=== PATIENT | female | born 1960 | race African-American/Black ===

== ENCOUNTER 2018-01-14 17:21 | Emergency (ER) | payer MEDICARE, MEDICAID ==
[~2018-01-14] VITALS: Ht 165.1 cm; Wt 75.0 kg
[~2018-01-14 17:21] MED LIST: ASPI-1159 PO; LASIX PO; LORA1TAB PO; Metoprolol PO
[2018-01-14 17:33] VITALS: BP 164/59
[2018-01-14] MEDS ORDERED: MORPHINE SULFATE 4 MG/ML CPJ (NOT FOR IM USE) IV STA (18:16)
[2018-01-14] MEDS ORDERED: SODIUM CHLORIDE 0.9% 1,000 ML IV ONE (18:16)
[2018-01-14] MEDS ORDERED: ONDANSETRON HCL 4MG/2ML VIAL IV STA (18:16)
[2018-01-16] MEDS ORDERED: ATOR10TA MT (14:54)
[2018-01-16] MEDS ORDERED: LOSA50TA20 MT (14:54)
[2018-01-16] MEDS ORDERED: TYLENOL PO (14:54)
[2018-01-18] MEDS ORDERED: WARF2.5T47 PO (15:02)
== END 2018-01-14 18:38 | disposition left against medical advice (07) ==
LOC: ER 18:35
DX: R10.31 Right lower quadrant pain (principal); I11.9 Hypertensive heart disease without heart failure; E78.00 Pure hypercholesterolemia, unspecified; Z86.73 Personal history of transient ischemic attack (TIA), and cerebral infarction without residual deficits; Z95.2 Presence of prosthetic heart valve; Z95.0 Presence of cardiac pacemaker
CPT/HCPCS: 99281; J7030

== ENCOUNTER 2019-01-04 12:15 | Emergency (ER) | payer MEDICARE, MEDICAID ==
[~2019-01-04] VITALS: Ht 162.6 cm; Wt 84.0 kg
[~2019-01-04 12:15] MED LIST changes: -ASPI-1159 PO; +ASPI-1393 PO; +ATOR10TA MT; +LOSA50TA41 MT; +TYLENOL PO; +WARF2.5T47 PO
[2019-01-04] MEDS ORDERED: CEFTRIAXONE 1 G PREMIX 50 ML IV ONE (13:00)
[2019-01-04] MEDS ORDERED: HYDROCODONE/ACETAMINOPHEN 5/325MG TABLET PO ONE (13:00)
[2019-01-04] MEDS ORDERED: VANCOMYCIN 1 G PREMIX 200 ML IV SCH (13:00)
[2019-01-04] MEDS ORDERED: IBUPROFEN 400MG TABLET PO ONE (13:00)
[2019-01-04 13:27] LABS: BASOPHILS % 0.9 % (0.0-2.0); EOSINOPHILS % 0.7 % (0.0-5.0); HEMATOCRIT. 36.3 % (36.0-48.0); HEMOGLOBIN. 11.7 g/dL (12.0-16.0); LYMPHOCYTES % 28.3 % (20.0-50.0); MEAN CORPUSCULAR HEMOGLOBIN 27.9 pg (28.0-32.0); MEAN CORPUSCULAR VOLUME 86.9 fL (81.0-99.0); MEAN PLATELET VOLUME 8.2 fl (7.4-10.4); MONOCYTES % 8.8 % (2.0-8.0); NEUTROPHILS % 61.3 % (40.0-76.0); PLATELET 199 x1000/uL (130-400); RED BLOOD CELL COUNT 4.18 mill/uL (4.2-5.4); RED CELL DISTRIBUTION WIDTH 14.2 % (11.6-14.6)
[2019-01-04 13:30] LABS: CHLORIDE 108 mEq/L (98-107)
[2019-01-04 13:35] LABS: INR 1.8
[2019-01-04 15:48] VITALS: BP 130/60
== END 2019-01-04 16:27 | disposition home or self-care (01) ==
LOC: ER 12:15
DX: L03.116 Cellulitis of left lower limb (principal); I11.9 Hypertensive heart disease without heart failure; E78.00 Pure hypercholesterolemia, unspecified; Z86.73 Personal history of transient ischemic attack (TIA), and cerebral infarction without residual deficits; Z87.891 Personal history of nicotine dependence; Z98.890 Other specified postprocedural states; Z95.0 Presence of cardiac pacemaker; Z79.899 Other long term (current) drug therapy
CPT/HCPCS: 36415; 80053; 85025; 85610; 85730; 87040; 93005; 93970; 96365; 96366; 96368; 99284; J0696; J3370

== ENCOUNTER 2019-06-27 13:46 | Emergency (ER) | payer MEDICAID, MEDICARE ==
[~2019-06-27] VITALS: Ht 162.6 cm; Wt 86.0 kg
[2019-06-27 21:35] LABS: CHLORIDE 108 mEq/L (98-107)
[2019-06-27 21:39] LABS: BASOPHILS % 0.5 % (0.0-2.0); EOSINOPHILS % 0.7 % (0.0-5.0); HEMATOCRIT. 35.2 % (36.0-48.0); HEMOGLOBIN. 11.2 g/dL (12.0-16.0); LYMPHOCYTES % 24.7 % (20.0-50.0); MEAN CORPUSCULAR HEMOGLOBIN 26.6 pg (28.0-32.0); MEAN CORPUSCULAR VOLUME 83.3 fL (81.0-99.0); MONOCYTES % 8.3 % (2.0-8.0); NEUTROPHILS % 65.8 % (40.0-76.0); PLATELET 312 x1000/uL (130-400); RED BLOOD CELL COUNT 4.22 mill/uL (4.2-5.4); RED CELL DISTRIBUTION WIDTH 16.9 % (11.6-14.6)
[2019-06-28 00:49] VITALS: BP 132/79
== END 2019-06-28 00:50 | disposition home or self-care (01) ==
LOC: ER 13:46
DX: R06.02 Shortness of breath (principal); R51 Headache; I11.0 Hypertensive heart disease with heart failure; I50.9 Heart failure, unspecified; E78.00 Pure hypercholesterolemia, unspecified; Z86.73 Personal history of transient ischemic attack (TIA), and cerebral infarction without residual deficits; Z95.0 Presence of cardiac pacemaker; Z98.890 Other specified postprocedural states; Z79.82 Long term (current) use of aspirin; Z79.899 Other long term (current) drug therapy
CPT/HCPCS: 36415; 71045; 83880; 84484; 93005; 99284

== ENCOUNTER → 2020-09-26 | Outpatient (CLI) | payer MEDICARE, MEDICAID ==
[~2020-09-26] MED LIST changes: -ASPI-1393 PO; +ASPI-1497 PO
== END | disposition home or self-care (01) ==
LOC: LAB 09:18
PROVIDERS: ATTEND Internal Medicine Cardiovascular Disease
DX: Z20.822 Contact with and (suspected) exposure to COVID-19 (principal)
CPT/HCPCS: 87426

== ENCOUNTER → 2020-09-27 | Outpatient (CLI) | payer MEDICARE, MEDICAID | END | disposition home or self-care (01) | LOC: US 10:43 | PROVIDERS: ATTEND Internal Medicine Cardiovascular Disease | DX: R10.819 Abdominal tenderness, unspecified site (principal); R10.9 Unspecified abdominal pain | CPT/HCPCS: 76770 ==

== ENCOUNTER 2023-12-29 20:14 | Inpatient (IN) | payer MEDICARE, MEDICAID ==
[~2023-12-29] VITALS: Ht 167.6 cm; Wt 81.6 kg
[~2023-12-29 20:14] MED LIST changes: +AMI2 PO; -ASPI-1497 PO; -ATOR10TA MT; +ATOR10TA69 PO; +FERR-63 PO; +FOLI-43 PO; +FURO40TA5 PO; -LASIX PO; -LORA1TAB PO; +LOSA25TA26 PO; -LOSA50TA41 MT; +METO5TAB7 PO; -Metoprolol PO; +OXYB-52 PO; +PANT40TA51 PO; -TYLENOL PO; +WARF-67 PO; -WARF2.5T47 PO
[2023-12-29 20:53] LABS: DIFFERENTIAL COMMENT 0; EOSINOPHILS % 1.4 % (0.0-5.0); HEMATOCRIT. 27.4 % (36.0-48.0); HEMOGLOBIN. 8.4 g/dL (12.0-16.0); LYMPHOCYTES % 21.7 % (20.0-50.0); MEAN CORPUSCULAR HEMOGLOBIN 24.1 pg (28.0-32.0); MEAN CORPUSCULAR HGB CONC 30.5 g/dL (31.0-37.0); MONOCYTES % 9.2 % (2.0-8.0); NEUTROPHILS % 66.7 % (40.0-76.0); PLATELET 260 x1000/uL (130-400); RED BLOOD CELL COUNT 3.46 mill/uL (4.2-5.4); RED CELL DISTRIBUTION WIDTH 18.1 % (11.6-14.6); WHITE BLOOD COUNT 5.2 x1000/uL (4.5-11.0)
[2023-12-29 20:59] LABS: CHLORIDE 109 mEq/L (98-107); SODIUM 143 mEq/L (136-145)
[2023-12-29 21:00] LABS: CALCIUM 9.1 mg/dL (8.7-10.4); CARBON DIOXIDE 27 mEq/L (21-32)
[2023-12-29 21:05] LABS: CREATININE 1.6 mg/dL (0.6-1.0); GLUCOSE 107 mg/dL (70-105); UREA NITROGEN BLOOD 24 mg/dL (9-23)
[2023-12-29 21:06] LABS: TROPONIN I HIGH SENSITIVITY 18 ng/L (3.0-34)
[2023-12-29] MEDS ORDERED: AZITHROMYCIN 500MG/250ML 250 ML IV SCH (22:15)
[2023-12-29] MEDS: CEFTRIAXONE 1GM/50ML 50 ML IV ONE (22:54)
[2023-12-29] MEDS: FUROSEMIDE 40MG/4ML VIAL IVP ONE (22:55)
[2023-12-29] MEDS: ACETAMINOPHEN 325MG TABLET PO STA (22:55)
[2023-12-29] MEDS ORDERED: GUAIFENESIN 200MG/10ML SUGAR FREE UDC PO PRN (23:30)
[2023-12-29] MEDS ORDERED: MAGNESIUM/ALUMINUM HYDROXIDE/SIMETHICONE 30ML UDC PO PRN (23:30)
[2023-12-29] MEDS ORDERED: CLONIDINE 0.1MG TABLET PO PRN (23:30)
[2023-12-29] MEDS ORDERED: ONDANSETRON HCL 4MG/2ML INJ IV PRN (23:30)
[2023-12-29] MEDS: ONDANSETRON HCL 4MG/2ML INJ IV NR (23:32)
[2023-12-29 23:39] LABS: INR 3.1; PARTIAL THROMBOPLASTIN TIME 34.7 sec (23.4-31.0); PROTHROMBIN TIME 31.8 sec (9.6-11.0)
[2023-12-29 23:42] LABS: ALANINE AMINOTRANSFERASE 23 IU/L (10-49); ALBUMIN 3.7 g/dL (3.2-4.8); ASPARTATE AMINOTRANSFERASE 34 IU/L (<34); BILIRUBIN DIRECT 0.2 mg/dL (<=3.0); BILIRUBIN TOTAL 0.5 mg/dL (0.1-1.0); PROTEIN TOTAL 6.6 g/dL (6.0-8.3)
[2023-12-29] MEDS: AZITHROMYCIN 500MG/250ML 250 ML IV NR (23:43)
[2023-12-30] MEDS: ALPRAZOLAM 0.25 MG TABLET PO NR (00:56)
[2023-12-30] MEDS ORDERED: CEFTRIAXONE 1GM/50ML 50 ML IV SCH (02:00)
[2023-12-30 02:10] VITALS: BP 98/56; PULSE 69; RESP 19; TEMP 95.4
[2023-12-30] MEDS: SODIUM CHLORIDE 0.45% 500 ML IV ONE (03:11)
[2023-12-30 04:00] VITALS: BP 125/63; PULSE 68; RESP 20; TEMP 96.2
[2023-12-30 06:49] LABS: CARBON DIOXIDE 24 mEq/L (21-32); CHLORIDE 109 mEq/L (98-107); POTASSIUM 3.9 mEq/L (3.5-5.1); SODIUM 142 mEq/L (136-145)
[2023-12-30 06:50] LABS: CALCIUM 8.6 mg/dL (8.7-10.4)
[2023-12-30 06:54] LABS: IRON 16 ug/dL (50-170); TROPONIN I HIGH SENSITIVITY 12 ng/L (3.0-34)
[2023-12-30 06:55] LABS: CREATININE 1.8 mg/dL (0.6-1.0); DIFFERENTIAL COMMENT 0; EOSINOPHILS % 0.4 % (0.0-5.0); GLUCOSE 94 mg/dL (70-105); HEMATOCRIT. 25.7 % (36.0-48.0); LYMPHOCYTES % 17.9 % (20.0-50.0); MEAN CORPUSCULAR HEMOGLOBIN 24.4 pg (28.0-32.0); MEAN CORPUSCULAR HGB CONC 31.2 g/dL (31.0-37.0); MEAN CORPUSCULAR VOLUME 78.2 fL (81.0-99.0); MEAN PLATELET VOLUME 7.5 fl (7.4-10.4); NEUTROPHILS % 69.7 % (40.0-76.0); PLATELET 236 x1000/uL (130-400); RED BLOOD CELL COUNT 3.29 mill/uL (4.2-5.4); TRIGLYCERIDE 56 mg/dL (0-150); UREA NITROGEN BLOOD 28 mg/dL (9-23); WHITE BLOOD COUNT 5.2 x1000/uL (4.5-11.0)
[2023-12-30 06:56] LABS: CHOLESTEROL 133 mg/dL (<200); LDL CHOLESTEROL 51 mg/dL (5-100)
[2023-12-30 06:57] LABS: HDL CHOLESTEROL 66 mg/dL (>65); PHOSPHORUS 4.1 mg/dL (2.5-4.9); T4 FREE 1.41 ng/dL (0.89-1.76); THYROID STIMULATING HORMONE 1.71 uIU/mL (0.55-4.78); TOTAL IRON BINDING CAPACITY 318 ug/dl (250-425)
[2023-12-30 08:00] VITALS: BP 123/69; PULSE 71; RESP 18; TEMP 97.1
[2023-12-30] MEDS ORDERED: DOXYCYCLINE 100MG/100ML 100 ML IV SCH ×2 (08:00→08:30)
[2023-12-30] MEDS: FOLIC ACID 1MG TABLET PO SCH (08:19)
[2023-12-30] MEDS: AMIODARONE HCL 200 MG TABLET PO SCH (08:19)
[2023-12-30 08:45] LABS: CLARITY URINE CLEAR (CLEAR); COLOR URINE DARK YELLOW (YELLOW); GLUCOSE URINE NEGATIVE (NEGATIVE); KETONES URINE TRACE (NEGATIVE); LEUKOCYTE ESTERASE URINE NEGATIVE (NEGATIVE); NITRITE URINE NEGATIVE (NEGATIVE); OCCULT BLOOD URINE TRACE (NEGATIVE); PROTEIN URINE 2+ (NEGATIVE); SPECIFIC GRAVITY URINE 1.019 (1.005-1.030)
[2023-12-30] MEDS ORDERED: FUROSEMIDE 40MG/4ML VIAL IV SCH (09:00)
[2023-12-30] MEDS ORDERED: LOSARTAN 25 MG TABLET PO SCH (09:00)
[2023-12-30] MEDS: DOXYCYCLINE 100MG/100ML 100 ML IV SCH (09:02)
[2023-12-30 09:12] LABS: SQUAMOUS EPITHELIAL CELL URINE 1+ /lpf (RARE/1+)
[2023-12-30 09:14] LABS: HYALINE CASTS URINE 0-5 /lpf
[2023-12-30 09:19] LABS: CREATININE URINE RANDOM 186.5 mg/dL
[2023-12-30 09:20] LABS: *AMPHETAMINES SCREEN URINE NEGATIVE (NEGATIVE); *BARBITURATES SCREEN URINE NEGATIVE (NEGATIVE); *BENZODIAZEPINES SCREEN URINE PRESUMPTIVE POSITIVE (NEGATIVE); *COCAINE SCREEN URINE NEGATIVE (NEGATIVE); CANNABINOID URINE SCREEN NEGATIVE (NEGATIVE); ECSTASY MDMA SCREEN URINE CONF.TEST INDICATED (NEGATIVE); METHADONE URINE SCREEN NEGATIVE (NEGATIVE); OPIATES URINE SCREEN NEGATIVE (NEGATIVE); PHENCYCLIDINE URINE SCREEN NEGATIVE (NEGATIVE)
[2023-12-30 09:21] LABS: RBC URINE 0-2 /hpf (0-2); WBC URINE 0-2 /hpf (0-2)
[2023-12-30 09:26] LABS: BACTERIA URINE 1+
[2023-12-30 12:00] VITALS: BP 114/65; PULSE 82; RESP 18; TEMP 97
[2023-12-30 16:00] VITALS: BP 86/48; PULSE 71; RESP 17; TEMP 98.8
[2023-12-30 20:00] VITALS: BP 113/65; PULSE 71; RESP 21; TEMP 97.7
[2023-12-30] MEDS: ATORVASTATIN CALCIUM 10MG TABLET PO SCH (20:51)
[2023-12-30] MEDS: METOPROLOL TARTRATE 25MG TABLET PO SCH (20:52)
[2023-12-30] MEDS ORDERED: AZITHROMYCIN 500MG/250ML 250 ML IV SCH (22:00)
[2023-12-31] VITALS: BP 125/72; PULSE 72; RESP 22; TEMP 98.1
[2023-12-31 04:00] VITALS: BP 110/78; PULSE 72; RESP 20; TEMP 97.6
[2023-12-31] MEDS: HYDROCODONE/ACETAMINOPHEN 5/325MG TABLET PO NR (04:33)
[2023-12-31 06:35] LABS: HEMATOCRIT 24.6 % (36.0-48.0); HEMOGLOBIN 7.5 g/dL (12.0-16.0); MEAN CORPUSCULAR HGB CONC 30.3 g/dL (31.0-37.0); MEAN CORPUSCULAR VOLUME 79.2 fL (81.0-99.0); PLATELET 226 x1000/uL (130-400); RED BLOOD CELL COUNT 3.11 mill/uL (4.2-5.4); RED CELL DISTRIBUTION WIDTH 18.1 % (11.6-14.6); WHITE BLOOD COUNT 4.6 x1000/uL (4.5-11.0)
[2023-12-31 06:41] LABS: CARBON DIOXIDE 24 mEq/L (21-32); CHLORIDE 109 mEq/L (98-107); SODIUM 141 mEq/L (136-145)
[2023-12-31 06:43] LABS: CALCIUM 8.6 mg/dL (8.7-10.4); INR 2.8
[2023-12-31 06:46] LABS: CREATININE 1.5 mg/dL (0.6-1.0)
[2023-12-31 06:47] LABS: GLUCOSE 102 mg/dL (70-105)
[2023-12-31 06:48] LABS: UREA NITROGEN BLOOD 33 mg/dL (9-23)
[2023-12-31 08:10] VITALS: BP 136/68; PULSE 72; RESP 18; TEMP 97.4
[2023-12-31] MEDS: BUMETANIDE 1MG/4ML VIAL IV SCH (09:10)
[2023-12-31] MEDS: DOCUSATE SODIUM 100MG CAPSULE PO PRN (09:31)
[2023-12-31 12:05] VITALS: BP 112/58; PULSE 74; RESP 20; TEMP 98.2
[2023-12-31] MEDS ORDERED: FOLIC ACID 1MG TABLET PO SCH (12:30)
[2023-12-31] MEDS: FERROUS SULFATE 325MG TABLET PO SCH (14:48)
[2023-12-31] MEDS: CITALOPRAM HYDROBROMIDE 10MG TABLET PO SCH (14:48)
[2023-12-31 16:04] VITALS: BP 110/62; PULSE 68; RESP 20; TEMP 97.8
[2023-12-31] MEDS: ONDANSETRON HCL 4MG/2ML INJ IV PRN (16:20)
[2023-12-31] MEDS ORDERED: FERR325T6 MT (16:27)
[2023-12-31] MEDS ORDERED: ALPR-393 MT (16:27)
[2023-12-31] MEDS ORDERED: BUME1TAB8 MT (16:27)
[2023-12-31] MEDS ORDERED: TRAZ-252 MT (16:43)
[2023-12-31] MEDS ORDERED: ESTR42.53 VG (16:43)
[2023-12-31] MEDS ORDERED: ESCI-7 PO (16:47)
[2023-12-31] MEDS ORDERED: CEPH250C2 PO (16:47)
[2023-12-31] MEDS ORDERED: B-COMPLEX PO (16:47)
[2023-12-31] MEDS ORDERED: METO-411 PO (16:47)
[2023-12-31] MEDS: WARFARIN SODIUM 2MG TABLET PO SCH (17:42)
[2023-12-31] MEDS: MONTELUKAST SODIUM 10MG TABLET PO SCH (17:42)
[2023-12-31 20:00] VITALS: BP 114/50; PULSE 68; RESP 20; TEMP 96.7
[2024-01-01] VITALS (8 sets, daily range): BP systolic 116–139; BP diastolic 57–69; PULSE 69–78; RESP 17–22; TEMP 96.1–97.9; O2SAT 97–98
[2024-01-01] MEDS: ALPRAZOLAM 0.25 MG TABLET PO PRN (00:31)
[2024-01-01 06:33] LABS: INR 2.6; PROTHROMBIN TIME 26.7 sec (9.6-11.0)
[2024-01-01] MEDS: IPRATROPIUM/ALBUTEROL 0.5-3(2.5)MG/3ML NEB HHN SCH (08:20)
[2024-01-01] MEDS: FERROUS SULFATE 325MG TABLET PO SCH (08:53)
[2024-01-01] MEDS: IPRATROPIUM/ALBUTEROL 0.5-3(2.5)MG/3ML NEB HHN PRN (13:09)
[2024-01-01] MEDS: ACETAMINOPHEN 325MG TABLET PO PRN (13:33)
[2024-01-02] VITALS (10 sets, daily range): BP systolic 116–147; BP diastolic 52–64; PULSE 70–79; RESP 15–22; TEMP 96.9–97.8; O2SAT 97–98
[2024-01-02 08:10] LABS: INR 2.5; PROTHROMBIN TIME 26.5 sec (9.6-11.0)
[2024-01-02 08:12] LABS: BASOPHILS % 0.9 % (0.0-2.0); EOSINOPHILS % 1.2 % (0.0-5.0); HEMATOCRIT. 25.3 % (36.0-48.0); HEMOGLOBIN. 7.5 g/dL (12.0-16.0); LYMPHOCYTES % 23.7 % (20.0-50.0); MEAN CORPUSCULAR HEMOGLOBIN 23.7 pg (28.0-32.0); MEAN CORPUSCULAR HGB CONC 29.6 g/dL (31.0-37.0); MEAN PLATELET VOLUME 7.7 fl (7.4-10.4); MONOCYTES % 13.5 % (2.0-8.0); NEUTROPHILS % 60.7 % (40.0-76.0); PLATELET 211 x1000/uL (130-400); RED BLOOD CELL COUNT 3.16 mill/uL (4.2-5.4); RED CELL DISTRIBUTION WIDTH 18.1 % (11.6-14.6); WHITE BLOOD COUNT 3.8 x1000/uL (4.5-11.0)
[2024-01-02 08:19] LABS: CARBON DIOXIDE 23 mEq/L (21-32); CHLORIDE 109 mEq/L (98-107); SODIUM 141 mEq/L (136-145)
[2024-01-02 08:20] LABS: CALCIUM 8.7 mg/dL (8.7-10.4); DIFFERENTIAL COMMENT 1
[2024-01-02 08:25] LABS: CREATININE 1.1 mg/dL (0.6-1.0); GLUCOSE 85 mg/dL (70-105); UREA NITROGEN BLOOD 25 mg/dL (9-23)
[2024-01-02] MEDS ORDERED: CITA10TA16 PO (14:28)
[2024-01-02] MEDS ORDERED: METO25TA6 PO (14:28)
[2024-01-02] MEDS ORDERED: MONT-46 PO (14:28)
[2024-01-02] MEDS ORDERED: FERR325T6 PO (14:28)
[2024-01-03] VITALS: BP 126/62; PULSE 85; RESP 18; TEMP 97
[2024-01-03 01:30] VITALS: PULSE 70; RESP 16
[2024-01-03 04:00] VITALS: BP 134/56; PULSE 84; RESP 15; TEMP 97.9
[2024-01-03 05:09] LABS: CHLAMYDIA TRACHOMATIS NAA Negative (Negative); NEISSERIA GONORRHOEAE NAA Negative (Negative)
[2024-01-03 06:13] LABS: INR 2.7; PROTHROMBIN TIME 28.3 sec (9.6-11.0)
[2024-01-03 08:00] VITALS: BP 157/67; PULSE 70; RESP 18; TEMP 97.9
[2024-01-03 12:00] VITALS: BP 151/84; PULSE 70; RESP 18; TEMP 97.8
[2024-01-03 13:12] VITALS: BP 120/54; PULSE 70; TEMP 97.8; O2SAT 98
[2024-01-03] MEDS ORDERED: CITA10TA16 PO (14:05)
[2024-01-03] MEDS ORDERED: METO25TA6 PO (14:05)
[2024-01-03] MEDS ORDERED: FERR325T6 PO (14:05)
[2024-01-03] MEDS ORDERED: MONT-46 PO (14:05)
== END 2024-01-03 14:22 | disposition home health service (06) | DRG 291 ==
LOC: ER 20:14 → 8WST 23:21
PROVIDERS: ADMIT Internal Medicine; ATTEND Internal Medicine
DX: I11.0 Hypertensive heart disease with heart failure (principal); I50.33 Acute on chronic diastolic (congestive) heart failure; J96.00 Acute respiratory failure, unspecified whether with hypoxia or hypercapnia; J18.9 Pneumonia, unspecified organism; N17.9 Acute kidney failure, unspecified; I47.20 Ventricular tachycardia, unspecified; I69.354 Hemiplegia and hemiparesis following cerebral infarction affecting left non-dominant side; E78.5 Hyperlipidemia, unspecified; D64.0 Hereditary sideroblastic anemia; D50.9 Iron deficiency anemia, unspecified; F32.9 Major depressive disorder, single episode, unspecified; F41.0 Panic disorder [episodic paroxysmal anxiety]; I07.1 Rheumatic tricuspid insufficiency; Z20.822 Contact with and (suspected) exposure to COVID-19; I95.9 Hypotension, unspecified; I48.0 Paroxysmal atrial fibrillation; Z79.01 Long term (current) use of anticoagulants; Z87.891 Personal history of nicotine dependence; Z95.0 Presence of cardiac pacemaker; Z95.3 Presence of xenogenic heart valve
CPT/HCPCS: 36415; 71045; 80048; 80061; 80076; 80305; 81003; 82270; 82570; 82728; 83540; 83550; 83735; 83880; 84100; 84156; 84439; 84443; 84484; 85025; 85027; 87426; 87491; 87591; 87804; 93005; 93306; 94640; 97162; 97165; 99285; C1893; J0456; J0696; J1940; J2405; J3490

== ENCOUNTER → 2024-01-29 | Outpatient (CLI) | payer MEDICARE, MEDICAID ==
[~2024-01-29] MED LIST changes: +ALPR-393 MT; +B-COMPLEX PO; +BUME1TAB8 MT; +CITA10TA16 PO; +ESTR42.53 VG; -FERR-63 PO; +FERR325T6 PO; -FURO40TA5 PO; +METO25TA6 PO; -METO5TAB7 PO; +MONT-46 PO
== END | disposition home or self-care (01) ==
LOC: CT 13:19
PROVIDERS: ATTEND Internal Medicine Cardiovascular Disease
DX: J90 Pleural effusion, not elsewhere classified (principal); I51.7 Cardiomegaly; R06.09 Other forms of dyspnea
CPT/HCPCS: 71250

== ENCOUNTER 2024-02-02 17:08 | Inpatient (IN) | payer MEDICARE, MEDICAID ==
[~2024-02-02] VITALS: Ht 162.6 cm; Wt 77.1 kg
[2024-02-02 18:22] LABS: HEMATOCRIT. 24.2 % (36.0-48.0); MEAN CORPUSCULAR HEMOGLOBIN 20.8 pg (28.0-32.0); MEAN CORPUSCULAR HGB CONC 28.3 g/dL (31.0-37.0); MEAN CORPUSCULAR VOLUME 73.7 fL (81.0-99.0); MEAN PLATELET VOLUME 7.2 fl (7.4-10.4); PLATELET 203 x1000/uL (130-400); RED BLOOD CELL COUNT 3.28 mill/uL (4.2-5.4); WHITE BLOOD COUNT 3.5 x1000/uL (4.5-11.0)
[2024-02-02 18:27] LABS: CHLORIDE 109 mEq/L (98-107); POTASSIUM 3.6 mEq/L (3.5-5.1); SODIUM 142 mEq/L (136-145)
[2024-02-02 18:28] LABS: CALCIUM 8.9 mg/dL (8.7-10.4); CARBON DIOXIDE 26 mEq/L (21-32)
[2024-02-02 18:29] LABS: DIFFERENTIAL COMMENT 1; HEMOGLOBIN. 6.8 g/dL (12.0-16.0)
[2024-02-02 18:33] LABS: CREATININE 1.2 mg/dL (0.6-1.0); GLUCOSE 95 mg/dL (70-105); UREA NITROGEN BLOOD 17 mg/dL (9-23)
[2024-02-02 18:34] LABS: TROPONIN I HIGH SENSITIVITY 16 ng/L (3.0-34)
[2024-02-02 18:43] LABS: ANISOCYTOSIS 1+; HYPOCHROMASIA 2+; MICROCYTOSIS 2+; PLATELET ESTIMATE NORMAL
[2024-02-02] MEDS ORDERED: CLONIDINE 0.1MG TABLET PO PRN (21:00)
[2024-02-02] MEDS ORDERED: DIPHENHYDRAMINE 50MG/ML VIAL IV PRN (21:00)
[2024-02-02] MEDS ORDERED: MAGNESIUM/ALUMINUM HYDROXIDE/SIMETHICONE 30ML UDC PO PRN (21:00)
[2024-02-02] MEDS ORDERED: ONDANSETRON HCL 4MG/2ML INJ IV PRN (21:00)
[2024-02-02] MEDS ORDERED: ACETAMINOPHEN 325MG TABLET PO PRN ×2 (21:00)
[2024-02-02] MEDS: OMEPRAZOLE 20MG CAPSULE EXTENDED RELEASE PO SCH (22:08)
[2024-02-02] MEDS: ATORVASTATIN CALCIUM 10MG TABLET PO SCH (22:08)
[2024-02-02] MEDS: DOCUSATE SODIUM 100MG CAPSULE PO SCH (22:08)
[2024-02-02] MEDS: SODIUM CHLORIDE 0.9% 3ML FLUSH IVF SCH (22:11)
[2024-02-03 00:54] LABS: VITAMIN B12 SERUM > 2000 pg/mL (211-911)
[2024-02-03 02:14] LABS: PROTHROMBIN TIME 11.4 sec (9.6-11.0)
[2024-02-03 08:25] LABS: MEAN CORPUSCULAR HEMOGLOBIN 22.5 pg (28.0-32.0); MEAN CORPUSCULAR HGB CONC 29.7 g/dL (31.0-37.0); MEAN CORPUSCULAR VOLUME 75.5 fL (81.0-99.0); PLATELET 176 x1000/uL (130-400); RED BLOOD CELL COUNT 3.58 mill/uL (4.2-5.4); RED CELL DISTRIBUTION WIDTH 20.4 % (11.6-14.6)
[2024-02-03] MEDS ORDERED: MAGNESIUM HYDROXIDE 400MG/5ML 30ML UDC PO PRN (09:00)
[2024-02-03] MEDS: FOLIC ACID 1MG TABLET PO SCH (09:34)
[2024-02-03] MEDS: LOSARTAN 25 MG TABLET PO SCH (09:43)
[2024-02-03] MEDS: AMIODARONE HCL 200 MG TABLET PO SCH (09:43)
[2024-02-03] MEDS: FERROUS SULFATE 325MG TABLET PO SCH (09:43)
[2024-02-03] MEDS: FUROSEMIDE 40MG/4ML VIAL IVP SCH (09:45)
[2024-02-03] MEDS: HYDROCODONE/ACETAMINOPHEN 10/325MG TABLET PO PRN ×2 (10:24→22:39)
[2024-02-03] MEDS: ENOXAPARIN 80MG/0.8ML SYR SUBCUT SCH (14:00)
[2024-02-03 15:12] VITALS: BP 148/69; PULSE 70; RESP 18; TEMP 98.2
[2024-02-03 15:25] VITALS: BP 148/69; PULSE 70; RESP 18; TEMP 98.2
[2024-02-03] MEDS: DILTIAZEM HCL 30MG TABLET PO SCH (17:32)
[2024-02-03] MEDS: EPOETIN ALFA-EPBX 10,000 UNIT/ML VIAL SUBCUT NR (17:46)
[2024-02-03] MEDS ORDERED: WARFARIN SODIUM 5MG TABLET PO SCH (18:00)
[2024-02-03 20:00] VITALS: BP 119/58; PULSE 71; RESP 20; TEMP 97.7
[2024-02-03] MEDS ORDERED: NALOXONE HCL 0.4MG/ML VIAL IV PRN (22:30)
[2024-02-04] VITALS: BP 127/56; PULSE 72; RESP 19; TEMP 98.5
[2024-02-04] MEDS: ALPRAZOLAM 0.25 MG TABLET PO PRN (01:47)
[2024-02-04 04:00] VITALS: BP 124/50; PULSE 72; RESP 18; TEMP 98
[2024-02-04 06:48] LABS: PROTHROMBIN TIME 11.5 sec (9.6-11.0)
[2024-02-04 08:00] VITALS: BP 140/74; PULSE 70; RESP 20; TEMP 97.9
[2024-02-04 12:04] VITALS: BP 147/59; PULSE 70; RESP 20; TEMP 97.5
[2024-02-04] MEDS ORDERED: LIDOCAINE HCL/PF 1% 10 MG/ML 5ML VIAL ONE (12:05)
[2024-02-04] MEDS ORDERED: DIPHENHYDRAMINE 50MG/ML VIAL ONE (12:05)
[2024-02-04] MEDS ORDERED: VERAPAMIL HCL 2.5 MG/1 ML 2ML VIAL IV ONE (12:05)
[2024-02-04] MEDS ORDERED: IODIXANOL 320MG/ML 100 ML BOTTLE IV ONE (12:06)
[2024-02-04] MEDS ORDERED: HEPARIN 1000 UNITS/ML 10ML ONE (12:06)
[2024-02-04] MEDS ORDERED: FENTANYL CITRATE/PF 50MCG/ML 2ML VIAL ONE (12:37)
[2024-02-04] MEDS ORDERED: MIDAZOLAM HCL 2 MG/2 ML VIAL ONE (12:37)
[2024-02-04] MEDS ORDERED: ACETAMINOPHEN 325MG TABLET PO PRN (14:00)
[2024-02-04] MEDS ORDERED: ATROPINE SULFATE 1MG/10ML SYR IV PRN (14:00)
[2024-02-04 16:00] VITALS: BP 122/59; PULSE 74; RESP 20; TEMP 97.7
[2024-02-04 18:39] LABS: HEMATOCRIT. 32.3 % (36.0-48.0); HEMOGLOBIN. 9.6 g/dL (12.0-16.0); MEAN CORPUSCULAR HEMOGLOBIN 22.6 pg (28.0-32.0); MEAN CORPUSCULAR HGB CONC 29.7 g/dL (31.0-37.0); MEAN CORPUSCULAR VOLUME 76.1 fL (81.0-99.0); MEAN PLATELET VOLUME 7.8 fl (7.4-10.4); PLATELET 189 x1000/uL (130-400); RED BLOOD CELL COUNT 4.24 mill/uL (4.2-5.4); WHITE BLOOD COUNT 4.9 x1000/uL (4.5-11.0)
[2024-02-04 18:41] LABS: DIFFERENTIAL COMMENT 1
[2024-02-04 18:59] LABS: CHLORIDE 108 mEq/L (98-107); POTASSIUM 3.2 mEq/L (3.5-5.1); SODIUM 139 mEq/L (136-145)
[2024-02-04 19:00] LABS: CARBON DIOXIDE 23 mEq/L (21-32)
[2024-02-04 19:01] LABS: CALCIUM 8.9 mg/dL (8.7-10.4)
[2024-02-04 19:02] LABS: ANISOCYTOSIS 1+; HYPOCHROMASIA 1+; MICROCYTOSIS 1+; PLATELET ESTIMATE NORMAL
[2024-02-04 19:05] LABS: GLUCOSE 126 mg/dL (70-105); UREA NITROGEN BLOOD 9 mg/dL (9-23)
[2024-02-04 19:07] LABS: ALANINE AMINOTRANSFERASE 10 IU/L (10-49); ALBUMIN 3.8 g/dL (3.2-4.8); ASPARTATE AMINOTRANSFERASE 27 IU/L (<34)
[2024-02-04 19:08] LABS: BILIRUBIN TOTAL 0.9 mg/dL (0.1-1.0); PROTEIN TOTAL 6.9 g/dL (6.0-8.3)
[2024-02-04 20:00] VITALS: BP 101/75; PULSE 74; RESP 18; TEMP 98.1
[2024-02-05] VITALS (7 sets, daily range): BP systolic 118–138; BP diastolic 46–70; PULSE 78–85; RESP 16–20; TEMP 97.6–98.1; O2SAT 98
[2024-02-05] MEDS: DILTIAZEM HCL 60MG TABLET PO SCH (02:00)
[2024-02-05] MEDS: ZOLPIDEM TARTRATE 5MG TABLET PO PRN (04:18)
[2024-02-05 06:42] LABS: CARBON DIOXIDE 26 mEq/L (21-32); CHLORIDE 108 mEq/L (98-107); SODIUM 141 mEq/L (136-145)
[2024-02-05 06:43] LABS: CALCIUM 8.6 mg/dL (8.7-10.4)
[2024-02-05 06:48] LABS: GLUCOSE 81 mg/dL (70-105); UREA NITROGEN BLOOD 10 mg/dL (9-23)
[2024-02-05 06:49] LABS: ALANINE AMINOTRANSFERASE 8 IU/L (10-49); ALBUMIN 3.6 g/dL (3.2-4.8); ASPARTATE AMINOTRANSFERASE 25 IU/L (<34)
[2024-02-05 06:50] LABS: BILIRUBIN TOTAL 0.9 mg/dL (0.1-1.0); PROTEIN TOTAL 6.3 g/dL (6.0-8.3)
[2024-02-05 06:52] LABS: HEMATOCRIT. 29.7 % (36.0-48.0); HEMOGLOBIN. 8.9 g/dL (12.0-16.0); MEAN CORPUSCULAR HEMOGLOBIN 22.5 pg (28.0-32.0); MEAN CORPUSCULAR HGB CONC 29.9 g/dL (31.0-37.0); MEAN CORPUSCULAR VOLUME 75.1 fL (81.0-99.0); MEAN PLATELET VOLUME 7.8 fl (7.4-10.4); PLATELET 178 x1000/uL (130-400); RED BLOOD CELL COUNT 3.95 mill/uL (4.2-5.4); RED CELL DISTRIBUTION WIDTH 19.8 % (11.6-14.6); WHITE BLOOD COUNT 5.1 x1000/uL (4.5-11.0)
[2024-02-05 07:47] LABS: DIFFERENTIAL COMMENT 1
[2024-02-05] MEDS: POTASSIUM CHLORIDE 20MEQ TABLET SR PO SCH (10:46)
[2024-02-05] MEDS: MAGNESIUM 2 G PREMIX 50 ML IV SCH (16:36)
[2024-02-05 17:38] LABS: CHLORIDE 107 mEq/L (98-107); SODIUM 140 mEq/L (136-145)
[2024-02-05 17:39] LABS: CARBON DIOXIDE 26 mEq/L (21-32)
[2024-02-05 23:29] LABS: ANISOCYTOSIS 1+; HYPOCHROMASIA 1+; MICROCYTOSIS 1+; PLATELET ESTIMATE NORMAL
== END 2024-02-05 19:10 | disposition home or self-care (01) | DRG 286 ==
LOC: ER 17:08 → MICUSO 19:42 → EDBEDREQTM 19:52 → EDBEDREQ 19:52 → 7WST 02-03 15:39
PROVIDERS: ADMIT Internal Medicine; ATTEND Internal Medicine
PROC: 4A023N7 Measurement of Cardiac Sampling and Pressure, Left Heart, Percutaneous Approach (ICD-10-PCS; principal; 2024-02-04)
PROC: B211YZZ Fluoroscopy of Multiple Coronary Arteries using Other Contrast (ICD-10-PCS; 2024-02-04)
DX: I11.0 Hypertensive heart disease with heart failure (principal); I50.43 Acute on chronic combined systolic (congestive) and diastolic (congestive) heart failure; I48.20 Chronic atrial fibrillation, unspecified; N17.9 Acute kidney failure, unspecified; I27.20 Pulmonary hypertension, unspecified; I25.10 Atherosclerotic heart disease of native coronary artery without angina pectoris; F32.A Depression, unspecified; F41.1 Generalized anxiety disorder; D50.0 Iron deficiency anemia secondary to blood loss (chronic); E83.42 Hypomagnesemia; E87.6 Hypokalemia; I07.1 Rheumatic tricuspid insufficiency; Z95.0 Presence of cardiac pacemaker; Z95.2 Presence of prosthetic heart valve; Z79.01 Long term (current) use of anticoagulants; Z86.73 Personal history of transient ischemic attack (TIA), and cerebral infarction without residual deficits; Z87.891 Personal history of nicotine dependence; Z91.199 Patient's noncompliance with other medical treatment and regimen due to unspecified reason
CPT/HCPCS: 36415; 71045; 80048; 80051; 80053; 82607; 83735; 83880; 84484; 85025; 85027; 85044; 86850; 86900; 86920; 87426; 93005; 93306; 93458; 99291; C1887; C1893; J0885; J1200; J1644; J1650; J1940; J2250; J3010; J3475; J3490; P9016; Q9967

== ENCOUNTER 2024-02-11 12:48 | Inpatient (IN) | payer MEDICARE, MEDICAID ==
[~2024-02-11] VITALS: Ht 165.1 cm; Wt 77.1 kg
[2024-02-11 13:18] LABS: HEMATOCRIT. 32.1 % (36.0-48.0); HEMOGLOBIN. 9.6 g/dL (12.0-16.0); MEAN CORPUSCULAR HEMOGLOBIN 22.6 pg (28.0-32.0); MEAN CORPUSCULAR HGB CONC 29.8 g/dL (31.0-37.0); MEAN PLATELET VOLUME 7.8 fl (7.4-10.4); PLATELET 178 x1000/uL (130-400); RED BLOOD CELL COUNT 4.23 mill/uL (4.2-5.4); RED CELL DISTRIBUTION WIDTH 21.9 % (11.6-14.6); WHITE BLOOD COUNT 3.1 x1000/uL (4.5-11.0)
[2024-02-11 13:20] LABS: CHLORIDE 109 mEq/L (98-107); POTASSIUM 4.6 mEq/L (3.5-5.1); SODIUM 139 mEq/L (136-145)
[2024-02-11 13:21] LABS: CALCIUM 9.2 mg/dL (8.7-10.4); CARBON DIOXIDE 24 mEq/L (21-32)
[2024-02-11 13:26] LABS: GLUCOSE 93 mg/dL (70-105); UREA NITROGEN BLOOD 11 mg/dL (9-23)
[2024-02-11 13:28] LABS: DIFFERENTIAL COMMENT 1
[2024-02-11 13:29] LABS: TROPONIN I HIGH SENSITIVITY 16 ng/L (3.0-34)
[2024-02-11] MEDS: FUROSEMIDE 40MG/4ML VIAL IVP ONE (14:28)
[2024-02-11 15:28] LABS: ANISOCYTOSIS 3+; HYPOCHROMASIA 1+; MICROCYTOSIS 1+; PLATELET ESTIMATE NORMAL
[2024-02-11 15:35] LABS: D-DIMER 1.16 mg/L FEU (<0.50); INR 1.2; PARTIAL THROMBOPLASTIN TIME 28.9 sec (23.4-31.0); PROTHROMBIN TIME 12.8 sec (9.6-11.0)
[2024-02-11 20:00] VITALS: BP 155/71; PULSE 83; RESP 19; TEMP 97.4
[2024-02-11 20:16] VITALS: BP 181/77; RESP 20; TEMP 97.7; O2SAT 95
[2024-02-11] MEDS: HYDRALAZINE 20MG/ML VIAL IV PRN (21:27)
[2024-02-11] MEDS ORDERED: HYDRALAZINE 20MG/ML VIAL IV PRN (22:00)
[2024-02-11] MEDS ORDERED: MAGNESIUM/ALUMINUM HYDROXIDE/SIMETHICONE 30ML UDC PO PRN (22:00)
[2024-02-11] MEDS ORDERED: ONDANSETRON HCL 4MG/2ML INJ IV PRN (22:00)
[2024-02-11] MEDS ORDERED: NALOXONE HCL 0.4MG/ML VIAL IV PRN (22:30)
[2024-02-11] MEDS: WARFARIN SODIUM 3MG TABLET PO NR (23:17)
[2024-02-11] MEDS: DILTIAZEM HCL 60MG TABLET PO SCH (23:17)
[2024-02-11] MEDS: HYDROCODONE/ACETAMINOPHEN 10/325MG TABLET PO PRN (23:18)
[2024-02-11] MEDS ORDERED: WARFARIN SODIUM 5MG TABLET PO NR (23:30)
[2024-02-12] VITALS (7 sets, daily range): BP systolic 112–155; BP diastolic 54–89; PULSE 78–89; RESP 18–19; TEMP 97–97.7
[2024-02-12] MEDS ORDERED: FURO40TA5 PO (00:12)
[2024-02-12] MEDS: ZOLPIDEM TARTRATE 5MG TABLET PO PRN (02:34)
[2024-02-12] MEDS: SODIUM CHLORIDE 0.9% 3ML FLUSH IVF SCH (02:35)
[2024-02-12] MEDS: ALLOPURINOL 300 MG TABLET PO SCH (09:00)
[2024-02-12] MEDS: LOSARTAN 50 MG TABLET PO SCH (10:22)
[2024-02-12] MEDS: FERROUS SULFATE 325MG TABLET PO SCH (10:22)
[2024-02-12] MEDS: AMIODARONE 200MG TABLET PO SCH (10:22)
[2024-02-12] MEDS: DIPHENHYDRAMINE 50MG/ML VIAL IV PRN (12:16)
[2024-02-12] MEDS ORDERED: IPRATROPIUM/ALBUTEROL 0.5-3(2.5)MG/3ML NEB HHN PRN (12:45)
[2024-02-12 13:57] LABS: INR 1.3
[2024-02-12 14:17] LABS: HEPATITIS B SURFACE ANTIGEN NEGATIVE (Negative)
[2024-02-12 14:38] LABS: HEPATITIS C AB NON REACTIVE (Neg) (Negative)
[2024-02-12] MEDS: WARFARIN SODIUM 3MG TABLET PO SCH (17:07)
[2024-02-12] MEDS: IPRATROPIUM/ALBUTEROL 0.5-3(2.5)MG/3ML NEB HHN SCH (18:00)
[2024-02-12] MEDS: ATORVASTATIN CALCIUM 10MG TABLET PO SCH (21:43)
[2024-02-12] MEDS: EPOETIN ALFA-EPBX 10,000 UNIT/ML VIAL SUBCUT NR (21:44)
[2024-02-13] VITALS (8 sets, daily range): BP systolic 111–138; BP diastolic 60–73; PULSE 72–89; RESP 16–20; TEMP 97.4–97.9; O2SAT 90–91
[2024-02-13 07:46] LABS: INR 1.5
[2024-02-13] MEDS: WARFARIN SODIUM 3MG TABLET PO SCH (17:27)
[2024-02-13] MEDS: IOHEXOL-350 100 ML BOTTLE ONE (21:18)
[2024-02-14] VITALS (9 sets, daily range): BP systolic 114–125; BP diastolic 48–62; PULSE 74–93; RESP 14–20; TEMP 97.1–98.1; O2SAT 98–99
[2024-02-14 06:08] LABS: INR 1.7; PROTHROMBIN TIME 18.6 sec (9.6-11.0)
[2024-02-14] MEDS: DOCUSATE SODIUM 100MG CAPSULE PO PRN (20:56)
[2024-02-15] VITALS (7 sets, daily range): BP systolic 112–152; BP diastolic 52–80; PULSE 94–109; RESP 16–20; TEMP 97.1–100; O2SAT 90–93
[2024-02-15 07:09] LABS: INR 1.7; PROTHROMBIN TIME 18.5 sec (9.6-11.0)
[2024-02-15] MEDS: ENOXAPARIN 80MG/0.8ML SYR SUBCUT NR (14:45)
[2024-02-15 18:39] LABS: BASOPHILS % 0.5 % (0.0-2.0); EOSINOPHILS % 1.4 % (0.0-5.0); HEMATOCRIT. 32.9 % (36.0-48.0); HEMOGLOBIN. 9.5 g/dL (12.0-16.0); LYMPHOCYTES % 12.2 % (20.0-50.0); MEAN CORPUSCULAR HEMOGLOBIN 22.2 pg (28.0-32.0); MEAN CORPUSCULAR HGB CONC 28.9 g/dL (31.0-37.0); MEAN CORPUSCULAR VOLUME 76.7 fL (81.0-99.0); MEAN PLATELET VOLUME 7.5 fl (7.4-10.4); NEUTROPHILS % 74.9 % (40.0-76.0); PLATELET 254 x1000/uL (130-400); RED CELL DISTRIBUTION WIDTH 22.2 % (11.6-14.6); WHITE BLOOD COUNT 6.6 x1000/uL (4.5-11.0)
[2024-02-15 18:40] LABS: ADD RBC MORPHOLOGY YES; DIFFERENTIAL COMMENT 1
[2024-02-15] MEDS: ALPRAZOLAM 0.25 MG TABLET PO PRN (18:48)
[2024-02-15 18:49] LABS: CHLORIDE 109 mEq/L (98-107); POTASSIUM 4.2 mEq/L (3.5-5.1); SODIUM 140 mEq/L (136-145)
[2024-02-15 18:50] LABS: CARBON DIOXIDE 24 mEq/L (21-32)
[2024-02-15 18:51] LABS: CALCIUM 9.1 mg/dL (8.7-10.4)
[2024-02-15 18:55] LABS: GLUCOSE 74 mg/dL (70-105)
[2024-02-15 18:56] LABS: UREA NITROGEN BLOOD 19 mg/dL (9-23)
[2024-02-15 18:57] LABS: ALANINE AMINOTRANSFERASE 13 IU/L (10-49); ALBUMIN 4.3 g/dL (3.2-4.8); ASPARTATE AMINOTRANSFERASE 27 IU/L (<34)
[2024-02-15 18:58] LABS: BILIRUBIN TOTAL 0.6 mg/dL (0.1-1.0); PROTEIN TOTAL 7.5 g/dL (6.0-8.3)
[2024-02-15 19:41] LABS: ANISOCYTOSIS 1+; HYPOCHROMASIA 1+; MICROCYTOSIS 1+; PLATELET ESTIMATE NORMAL
[2024-02-15] MEDS: CHLORHEXIDINE GLUCONATE 4% EXTERNAL USE TOP SCH (21:55)
[2024-02-15] MEDS: DOCUSATE SODIUM 100MG CAPSULE PO SCH (21:58)
[2024-02-15] MEDS: ASCORBIC ACID 500 MG TABLET PO SCH (22:00)
[2024-02-15] MEDS: ALLOPURINOL 300 MG TABLET PO SCH (22:04)
[2024-02-15] MEDS: ACETAMINOPHEN 325MG TABLET PO PRN (23:53)
[2024-02-16] VITALS (60 sets, daily range): BP systolic 105–162; BP diastolic 53–88; PULSE 68–108; RESP 11–47; TEMP 94.2–101.7; O2SAT 95–99
[2024-02-16] MEDS ORDERED: DOBUTAMINE 250 MG/250 ML PREMIX IV PRN (05:00)
[2024-02-16] MEDS ORDERED: INSULIN REGULAR 100 U/100 ML PREMIX IV PRN (05:00)
[2024-02-16] MEDS ORDERED: AMINOCAPROIC ACID 5,000 MG in SODIUM CHLORIDE 0.9% 250 ML IV NR (05:00)
[2024-02-16] MEDS ORDERED: EPINEPHRINE 5 MG in DEXT 5% WATER 250 ML IV PRN (05:00)
[2024-02-16] MEDS ORDERED: NOREPINEPHRINE 8MG/250ML PMX 250 ML IV PRN (05:00)
[2024-02-16] MEDS ORDERED: NICARDIPINE 40MG/200ML PREMIX 200 ML IV PRN (05:00)
[2024-02-16] MEDS ORDERED: DOPAMINE 400 MG PREMIX 250 ML IV PRN (05:00)
[2024-02-16] MEDS ORDERED: DEL NIDO CARDIOPLEGIA 1,000 ML (CHMC) IV NR ×2 (05:00)
[2024-02-16] MEDS: CEFAZOLIN 2GM/100ML 100 ML IV NR (06:50)
[2024-02-16] MEDS ORDERED: HEPARIN 1000 UNITS/ML 10ML ONE ×2 (07:16→09:35)
[2024-02-16] MEDS ORDERED: SEVOFLURANE 250 ML LIQUID INH ONE (07:16)
[2024-02-16] MEDS ORDERED: POLYMYXIN B SULFATE 500000 UNITS/VIAL ONE (07:18)
[2024-02-16] MEDS ORDERED: THROMBIN (BOVINE) 5000 UNITS/VIAL TOP ONE (07:18)
[2024-02-16 07:38] LABS: HEMATOCRIT 32.9 % (36.0-48.0); HEMOGLOBIN 9.5 g/dL (12.0-16.0)
[2024-02-16] MEDS ORDERED: NITROGLYCERIN 50MG PREMIX 250 ML IV ONE (07:45)
[2024-02-16 07:48] LABS: INR 1.5; PROTHROMBIN TIME 16.4 sec (9.6-11.0)
[2024-02-16] MEDS ORDERED: FENTANYL CITRATE/PF 50MCG/ML 2ML VIAL ONE ×4 (08:31→08:32)
[2024-02-16] MEDS ORDERED: PROPOFOL 200MG/20ML VIAL IV ONE (08:31)
[2024-02-16] MEDS ORDERED: MIDAZOLAM HCL 2 MG/2 ML VIAL ONE (08:32)
[2024-02-16] MEDS ORDERED: PHENYLEPHRINE HCL 10MG/ML 1ML IV ONE (08:37)
[2024-02-16] MEDS ORDERED: ROCURONIUM BROMIDE 10MG/ML VIAL 5ML IV ONE ×2 (08:38→09:50)
[2024-02-16] MEDS ORDERED: ALBUMIN HUMAN 25GM/100ML (25%) IV ONE (09:00)
[2024-02-16] MEDS ORDERED: CHLORHEXIDINE GLUCONATE 4% EXTERNAL USE TOP SCH (09:00)
[2024-02-16] MEDS ORDERED: FUROSEMIDE 100MG/10ML VIAL ONE ×2 (09:15→09:16)
[2024-02-16] MEDS ORDERED: VANCOMYCIN HCL 1GM VIAL ONE (09:20)
[2024-02-16] MEDS ORDERED: AMINOCAPROIC ACID 250 MG/ML 20ML VIAL ONE (09:35)
[2024-02-16] MEDS ORDERED: DEXTROSE 50% WATER 50ML SYRINGE IV PRN ×2 (10:30)
[2024-02-16] MEDS ORDERED: KCL 10MEQ/50ML PREMIX 200 ML IV PRN (10:30)
[2024-02-16] MEDS ORDERED: MAGNESIUM 1 G PREMIX 100 ML IV PRN ×2 (10:30→11:00)
[2024-02-16] MEDS ORDERED: MAGNESIUM SULFATE 3 GM in DEXT 5% WATER 100 ML IV PRN (10:30)
[2024-02-16] MEDS ORDERED: MAGNESIUM 2 G PREMIX 50 ML IV PRN (10:30)
[2024-02-16] MEDS ORDERED: KCL 10MEQ/50ML PREMIX 150 ML IV PRN (10:30)
[2024-02-16] MEDS ORDERED: NEOSTIGMINE METHYLSULFATE 1MG/ML 10 ML VIAL ONE (10:46)
[2024-02-16] MEDS ORDERED: GLYCOPYRROLATE 0.2 MG/ML 2ML VIAL ONE ×2 (10:47)
[2024-02-16] MEDS ORDERED: ALBUMIN HUMAN 25GM/100ML (25%) IV PRN (11:00)
[2024-02-16] MEDS ORDERED: SODIUM CHLORIDE 0.9% 500 ML IV PRN (11:00)
[2024-02-16] MEDS ORDERED: ALBUMIN HUMAN 12.5G/250ML (5%) IV PRN (11:00)
[2024-02-16] MEDS ORDERED: ACETAMINOPHEN 325MG TABLET PO PRN (11:00)
[2024-02-16] MEDS ORDERED: CALCIUM CHLORIDE 3,000 MG in DEXT 5% WATER 250 ML IV PRN (11:00)
[2024-02-16] MEDS ORDERED: SODIUM BICARBONATE 8.4% 50MEQ/50ML SYR IV ONE (11:04)
[2024-02-16 11:45] LABS: BG BASE EXCESS -3.7 mmol/L (-2.0-2.0); BG CARBOXYHEMOGLOBIN 1.9 % (0.5-1.5); BG DEOXYHEMOGLOBIN 32.5 % (0.0-5.0); BG FRACTION INSPIRED OXYGEN 100; BG HCO3 ACT 25.9 mmol/L (22.0-26.0); BG OXYGEN SATURATION 66.9 % (92.0-98.5); BG OXYHEMOGLOBIN 65.6 % (94.0-97.0); BG PCO2 73.6 mmHg (35.0-45.0); BG PH 7.164 (7.350-7.450); BG PO2 44.2 mmHg (75.0-100.0); BG SAMPLE SITE ALINE; BG TOTAL HEMOGLOBIN 10.9 g/dL (12.0-18.0); BG VENT MODE MASK - NRB
[2024-02-16 11:50] LABS: BASOPHILS % 0.8 % (0.0-2.0); DIFFERENTIAL COMMENT 1; EOSINOPHILS % 0.8 % (0.0-5.0); HEMATOCRIT. 32.5 % (36.0-48.0); HEMOGLOBIN. 9.4 g/dL (12.0-16.0); LYMPHOCYTES % 14.6 % (20.0-50.0); MEAN CORPUSCULAR HEMOGLOBIN 22.4 pg (28.0-32.0); MEAN CORPUSCULAR HGB CONC 29.1 g/dL (31.0-37.0); MEAN PLATELET VOLUME 7.2 fl (7.4-10.4); MONOCYTES % 6.8 % (2.0-8.0); PLATELET 229 x1000/uL (130-400); RED BLOOD CELL COUNT 4.22 mill/uL (4.2-5.4); RED CELL DISTRIBUTION WIDTH 22.6 % (11.6-14.6); WHITE BLOOD COUNT 11.2 x1000/uL (4.5-11.0)
[2024-02-16 11:51] LABS: ADD RBC MORPHOLOGY YES
[2024-02-16 11:57] LABS: CARBON DIOXIDE 26 mEq/L (21-32); CHLORIDE 110 mEq/L (98-107); POTASSIUM 3.9 mEq/L (3.5-5.1); SODIUM 140 mEq/L (136-145)
[2024-02-16 11:58] LABS: CALCIUM 8.2 mg/dL (8.7-10.4)
[2024-02-16] MEDS ORDERED: EPINEPHRINE 5 MG in DEXT 5% WATER 245 ML IV PRN (12:00)
[2024-02-16] MEDS: BLOOD SUGAR DIAGNOSTIC STRIP TEST SCH (12:00)
[2024-02-16 12:03] LABS: GLUCOSE 131 mg/dL (70-105); UREA NITROGEN BLOOD 20 mg/dL (9-23)
[2024-02-16] MEDS: DEXT 5%/0.45% NACL 1000ML 1,000 ML IV SCH (12:52)
[2024-02-16 12:58] LABS: BG BASE EXCESS -2.8 mmol/L (-2.0-2.0); BG CARBOXYHEMOGLOBIN 1.7 % (0.5-1.5); BG DEOXYHEMOGLOBIN 2.6 % (0.0-5.0); BG FRACTION INSPIRED OXYGEN 100; BG HCO3 ACT 23.6 mmol/L (22.0-26.0); BG METHEMOGLOBIN 0.3 % (0.0-1.5); BG OXYGEN SATURATION 97.3 % (92.0-98.5); BG OXYHEMOGLOBIN 95.4 % (94.0-97.0); BG PCO2 47.9 mmHg (35.0-45.0); BG PO2 98.5 mmHg (75.0-100.0); BG SAMPLE SITE ALINE; BG TOTAL HEMOGLOBIN 11.1 g/dL (12.0-18.0); BG VENT MODE MASK - BIPAP
[2024-02-16] MEDS: FUROSEMIDE 100MG/10ML VIAL IVP NR (13:01)
[2024-02-16] MEDS: DOPAMINE 400MG/250ML PREMIX 250 ML IV PRN (13:01)
[2024-02-16] MEDS: INSULIN REGULAR 100U/100ML PMX 100 ML IV SCH (13:03)
[2024-02-16] MEDS: KCL 10MEQ/50ML PREMIX 100 ML IV PRN (13:16)
[2024-02-16] MEDS: MAGNESIUM SULFATE 3 GM in DEXT 5% WATER 100 ML IV PRN (13:23)
[2024-02-16] MEDS: KETOROLAC 15MG/ML VIAL IV PRN (13:34)
[2024-02-16 15:02] LABS: BG BASE EXCESS -2.9 mmol/L (-2.0-2.0); BG CARBOXYHEMOGLOBIN 1.3 % (0.5-1.5); BG DEOXYHEMOGLOBIN 1.4 % (0.0-5.0); BG FRACTION INSPIRED OXYGEN 80; BG METHEMOGLOBIN 0.1 % (0.0-1.5); BG OXYGEN SATURATION 98.6 % (92.0-98.5); BG OXYHEMOGLOBIN 97.2 % (94.0-97.0); BG PCO2 38.4 mmHg (35.0-45.0); BG PH 7.375 (7.350-7.450); BG PO2 113.6 mmHg (75.0-100.0); BG SAMPLE SITE ALINE; BG TOTAL HEMOGLOBIN 10.6 g/dL (12.0-18.0); BG TOTAL RESPIRATORY RATE 33 b/min; BG VENT MODE MASK - BIPAP
[2024-02-16] MEDS: FENTANYL CITRATE/PF 50MCG/ML 2ML VIAL IV PRN (15:02)
[2024-02-16] MEDS: CEFAZOLIN 1000MG PREMIX 50 ML IV SCH (16:09)
[2024-02-16] MEDS: METOLAZONE 5MG TABLET PO NR (16:46)
[2024-02-16] MEDS ORDERED: METOLAZONE 10MG TABLET PO NR (17:30)
[2024-02-16] MEDS: BUMETANIDE 2.5MG/10ML VIAL IV NR (17:44)
[2024-02-16 18:27] LABS: HEMATOCRIT. 32.2 % (36.0-48.0); HEMOGLOBIN. 9.6 g/dL (12.0-16.0); MEAN CORPUSCULAR HEMOGLOBIN 22.6 pg (28.0-32.0); MEAN CORPUSCULAR HGB CONC 29.9 g/dL (31.0-37.0); MEAN CORPUSCULAR VOLUME 75.6 fL (81.0-99.0); MEAN PLATELET VOLUME 7.3 fl (7.4-10.4); PLATELET 234 x1000/uL (130-400); RED BLOOD CELL COUNT 4.25 mill/uL (4.2-5.4); RED CELL DISTRIBUTION WIDTH 22.9 % (11.6-14.6); WHITE BLOOD COUNT 8.9 x1000/uL (4.5-11.0)
[2024-02-16 18:29] LABS: DIFFERENTIAL COMMENT 1
[2024-02-16 18:34] LABS: CHLORIDE 108 mEq/L (98-107); POTASSIUM 4.5 mEq/L (3.5-5.1); SODIUM 138 mEq/L (136-145)
[2024-02-16 18:35] LABS: CARBON DIOXIDE 23 mEq/L (21-32)
[2024-02-16 18:36] LABS: CALCIUM 8.6 mg/dL (8.7-10.4)
[2024-02-16 18:40] LABS: CREATININE 1.2 mg/dL (0.6-1.0); GLUCOSE 103 mg/dL (70-105)
[2024-02-16 18:41] LABS: UREA NITROGEN BLOOD 23 mg/dL (9-23)
[2024-02-16 18:43] LABS: PHOSPHORUS 3.1 mg/dL (2.5-4.9)
[2024-02-16 19:10] LABS: ANISOCYTOSIS 1+; HYPOCHROMASIA 1+; MICROCYTOSIS 1+; PLATELET ESTIMATE NORMAL
[2024-02-16] MEDS: MAGNESIUM 2 G PREMIX 50 ML IV PRN (19:54)
[2024-02-16] MEDS: ONDANSETRON HCL 4MG/2ML INJ IV PRN (20:07)
[2024-02-16] MEDS ORDERED: APIXABAN 5 MG TABLET PO SCH (21:00)
[2024-02-16] MEDS: BACITRACIN 14GM TUBE TOP SCH (21:00)
[2024-02-16] MEDS: IPRATROPIUM/ALBUTEROL 0.5-3(2.5)MG/3ML NEB HHN SCH (21:24)
[2024-02-16] MEDS: VANCOMYCIN 750MG/250ML 250 ML IV SCH (21:26)
[2024-02-16 23:08] LABS: HEMOGLOBIN. 9.5 g/dL (12.0-16.0); MEAN CORPUSCULAR HEMOGLOBIN 22.5 pg (28.0-32.0); MEAN CORPUSCULAR HGB CONC 29.5 g/dL (31.0-37.0); MEAN PLATELET VOLUME 7.4 fl (7.4-10.4); PLATELET 256 x1000/uL (130-400); RED BLOOD CELL COUNT 4.22 mill/uL (4.2-5.4); RED CELL DISTRIBUTION WIDTH 22.8 % (11.6-14.6); WHITE BLOOD COUNT 9.7 x1000/uL (4.5-11.0)
[2024-02-16 23:10] LABS: DIFFERENTIAL COMMENT 1
[2024-02-16 23:13] LABS: CHLORIDE 106 mEq/L (98-107); POTASSIUM 4.1 mEq/L (3.5-5.1); SODIUM 136 mEq/L (136-145)
[2024-02-16 23:14] LABS: CALCIUM 8.5 mg/dL (8.7-10.4); CARBON DIOXIDE 22 mEq/L (21-32)
[2024-02-16 23:19] LABS: CREATININE 1.3 mg/dL (0.6-1.0); GLUCOSE 123 mg/dL (70-105)
[2024-02-16 23:20] LABS: UREA NITROGEN BLOOD 22 mg/dL (9-23)
[2024-02-16 23:22] LABS: PHOSPHORUS 2.7 mg/dL (2.5-4.9)
[2024-02-16 23:31] LABS: ANISOCYTOSIS 2+; HYPOCHROMASIA 1+; MICROCYTOSIS 1+; PLATELET ESTIMATE NORMAL
[2024-02-17] VITALS (97 sets, daily range): BP systolic 104–171; BP diastolic 51–86; PULSE 95–118; RESP 12–37; TEMP 98.7–100.5; O2SAT 100
[2024-02-17] MEDS: HYDROCODONE/ACETAMINOPHEN 10/325MG TABLET PO PRN ×2 (02:14→12:57)
[2024-02-17] MEDS ORDERED: NALOXONE HCL 0.4MG/ML VIAL IV PRN (02:15)
[2024-02-17] MEDS: ACETAMINOPHEN 325MG TABLET PO PRN (03:13)
[2024-02-17] MEDS: ALPRAZOLAM 0.25 MG TABLET PO PRN (03:14)
[2024-02-17 04:00] LABS: BG BASE EXCESS -3.8 mmol/L (-2.0-2.0); BG CARBOXYHEMOGLOBIN 1.2 % (0.5-1.5); BG DEOXYHEMOGLOBIN 4.1 % (0.0-5.0); BG FRACTION INSPIRED OXYGEN 44; BG HCO3 ACT 20.1 mmol/L (22.0-26.0); BG METHEMOGLOBIN 0.3 % (0.0-1.5); BG OXYGEN SATURATION 95.8 % (92.0-98.5); BG OXYHEMOGLOBIN 94.4 % (94.0-97.0); BG PCO2 32.6 mmHg (35.0-45.0); BG PH 7.408 (7.350-7.450); BG PO2 75.8 mmHg (75.0-100.0); BG SAMPLE SITE ALINE; BG TOTAL HEMOGLOBIN 10.9 g/dL (12.0-18.0); BG VENT MODE NASAL CANNULA
[2024-02-17 04:10] LABS: BASOPHILS % 0.2 % (0.0-2.0); HEMATOCRIT. 31.9 % (36.0-48.0); HEMOGLOBIN. 9.6 g/dL (12.0-16.0); LYMPHOCYTES % 1.8 % (20.0-50.0); MEAN CORPUSCULAR HEMOGLOBIN 22.5 pg (28.0-32.0); MEAN CORPUSCULAR VOLUME 75.2 fL (81.0-99.0); MEAN PLATELET VOLUME 7.3 fl (7.4-10.4); MONOCYTES % 9.4 % (2.0-8.0); NEUTROPHILS % 88.6 % (40.0-76.0); PLATELET 269 x1000/uL (130-400); RED BLOOD CELL COUNT 4.25 mill/uL (4.2-5.4); RED CELL DISTRIBUTION WIDTH 23.1 % (11.6-14.6); WHITE BLOOD COUNT 11.7 x1000/uL (4.5-11.0)
[2024-02-17 04:15] LABS: CHLORIDE 107 mEq/L (98-107); POTASSIUM 4.1 mEq/L (3.5-5.1); SODIUM 135 mEq/L (136-145)
[2024-02-17 04:16] LABS: CALCIUM 8.7 mg/dL (8.7-10.4); CARBON DIOXIDE 22 mEq/L (21-32)
[2024-02-17 04:21] LABS: CREATININE 1.3 mg/dL (0.6-1.0); GLUCOSE 97 mg/dL (70-105); UREA NITROGEN BLOOD 24 mg/dL (9-23)
[2024-02-17 04:24] LABS: DIFFERENTIAL COMMENT 1
[2024-02-17 05:04] LABS: BG BASE EXCESS -4.2 mmol/L (-2.0-2.0); BG CARBOXYHEMOGLOBIN 1.2 % (0.5-1.5); BG DEOXYHEMOGLOBIN 0.9 % (0.0-5.0); BG FRACTION INSPIRED OXYGEN 100; BG HCO3 ACT 20.6 mmol/L (22.0-26.0); BG METHEMOGLOBIN 0.3 % (0.0-1.5); BG OXYGEN SATURATION 99.1 % (92.0-98.5); BG OXYHEMOGLOBIN 97.6 % (94.0-97.0); BG PCO2 36.4 mmHg (35.0-45.0); BG PO2 135.9 mmHg (75.0-100.0); BG SAMPLE SITE ALINE; BG TOTAL HEMOGLOBIN 11.2 g/dL (12.0-18.0); BG VENT MODE MASK - NRB
[2024-02-17] MEDS: BLOOD SUGAR DIAGNOSTIC STRIP TEST SCH ×2 (05:28→17:50)
[2024-02-17] MEDS: CEFAZOLIN 1000MG PREMIX 50 ML IV SCH (06:50)
[2024-02-17] MEDS ORDERED: MAGNESIUM 2 G PREMIX 50 ML IV NR (08:30)
[2024-02-17] MEDS: FAMOTIDINE 20MG/2ML VIAL IV SCH (08:35)
[2024-02-17] MEDS: METOLAZONE 5MG TABLET PO NR (08:35)
[2024-02-17] MEDS: FUROSEMIDE 40MG/4ML VIAL IVP NR (08:35)
[2024-02-17 10:33] LABS: HEMATOCRIT. 32.6 % (36.0-48.0); HEMOGLOBIN. 9.6 g/dL (12.0-16.0); MEAN CORPUSCULAR HEMOGLOBIN 22.4 pg (28.0-32.0); MEAN CORPUSCULAR HGB CONC 29.5 g/dL (31.0-37.0); MEAN CORPUSCULAR VOLUME 75.7 fL (81.0-99.0); MEAN PLATELET VOLUME 7.8 fl (7.4-10.4); PLATELET 288 x1000/uL (130-400); RED BLOOD CELL COUNT 4.31 mill/uL (4.2-5.4); RED CELL DISTRIBUTION WIDTH 22.8 % (11.6-14.6); WHITE BLOOD COUNT 12.7 x1000/uL (4.5-11.0)
[2024-02-17] MEDS: BUMETANIDE 2.5MG/10ML VIAL IV NR (10:35)
[2024-02-17 10:37] LABS: CHLORIDE 104 mEq/L (98-107); POTASSIUM 4.1 mEq/L (3.5-5.1); SODIUM 135 mEq/L (136-145)
[2024-02-17 10:38] LABS: CALCIUM 8.9 mg/dL (8.7-10.4); CARBON DIOXIDE 21 mEq/L (21-32)
[2024-02-17 10:41] LABS: DIFFERENTIAL COMMENT 1
[2024-02-17 10:43] LABS: CREATININE 1.4 mg/dL (0.6-1.0); GLUCOSE 122 mg/dL (70-105); UREA NITROGEN BLOOD 25 mg/dL (9-23)
[2024-02-17] MEDS: METHYLPREDNISOLONE SOD SUCC 125MG/2ML (ACT-O-VIAL) IV NR (11:06)
[2024-02-17 12:51] LABS: ANISOCYTOSIS 3+; MICROCYTOSIS 1+
[2024-02-17 12:52] LABS: PLATELET ESTIMATE NORMAL
[2024-02-17] MEDS: SERTRALINE HCL 50MG TABLET PO SCH (14:35)
[2024-02-17] MEDS ORDERED: DEXTROSE 50% WATER 50ML SYRINGE IV PRN (16:15)
[2024-02-17] MEDS: INSULIN LISPRO 100 UNITS/ML SUBCUT SCH (18:12)
[2024-02-17] MEDS: APIXABAN 2.5 MG TABLET PO SCH (21:08)
[2024-02-17] MEDS: METHYLPREDNISOLONE SOD SUCC 40MG/ML (ACT-O-VIAL) IV SCH (21:08)
[2024-02-18] VITALS (65 sets, daily range): BP systolic 131–171; BP diastolic 59–97; PULSE 89–106; RESP 9–26; TEMP 98–98.7; O2SAT 96–98
[2024-02-18 06:30] LABS: BASOPHILS % 0.2 % (0.0-2.0); HEMATOCRIT. 32.2 % (36.0-48.0); HEMOGLOBIN. 9.6 g/dL (12.0-16.0); LYMPHOCYTES % 1.5 % (20.0-50.0); MEAN CORPUSCULAR HEMOGLOBIN 22.4 pg (28.0-32.0); MEAN CORPUSCULAR HGB CONC 29.8 g/dL (31.0-37.0); MEAN CORPUSCULAR VOLUME 75.2 fL (81.0-99.0); MEAN PLATELET VOLUME 8.6 fl (7.4-10.4); MONOCYTES % 6.4 % (2.0-8.0); NEUTROPHILS % 91.9 % (40.0-76.0); PLATELET 286 x1000/uL (130-400); RED BLOOD CELL COUNT 4.28 mill/uL (4.2-5.4); RED CELL DISTRIBUTION WIDTH 23.2 % (11.6-14.6); WHITE BLOOD COUNT 12.1 x1000/uL (4.5-11.0)
[2024-02-18 06:31] LABS: DIFFERENTIAL COMMENT 1
[2024-02-18 06:32] LABS: CALCIUM 9.4 mg/dL (8.7-10.4); CHLORIDE 104 mEq/L (98-107); POTASSIUM 3.9 mEq/L (3.5-5.1); SODIUM 132 mEq/L (136-145)
[2024-02-18 06:33] LABS: CARBON DIOXIDE 20 mEq/L (21-32)
[2024-02-18 06:38] LABS: CREATININE 1.5 mg/dL (0.6-1.0); GLUCOSE 159 mg/dL (70-105); UREA NITROGEN BLOOD 35 mg/dL (9-23)
[2024-02-18] MEDS: MINERAL OIL 30ML BOTTLE PO SCH (09:00)
[2024-02-18] MEDS: METOLAZONE 10MG TABLET PO NR (10:11)
[2024-02-18] MEDS: BUMETANIDE 2.5MG/10ML VIAL IV NR (10:26)
[2024-02-18] MEDS: METHYLPREDNISOLONE SOD SUCC 40MG/ML (ACT-O-VIAL) IV SCH (13:21)
[2024-02-18] MEDS: FOLIC ACID 1MG TABLET PO SCH (13:22)
[2024-02-18] MEDS: DILTIAZEM HCL 30MG TABLET PO SCH (13:22)
[2024-02-18] MEDS: APIXABAN 5 MG TABLET PO SCH (21:06)
[2024-02-18 22:16] LABS: POTASSIUM 4.6 mEq/L (3.5-5.1)
[2024-02-19] VITALS (39 sets, daily range): BP systolic 135–185; BP diastolic 65–141; PULSE 84–100; RESP 9–27; TEMP 97.6–98.7; O2SAT 96–98
[2024-02-19 05:53] LABS: CARBON DIOXIDE 24 mEq/L (21-32); CHLORIDE 103 mEq/L (98-107); POTASSIUM 4.5 mEq/L (3.5-5.1); SODIUM 133 mEq/L (136-145)
[2024-02-19 05:54] LABS: CALCIUM 9.6 mg/dL (8.7-10.4)
[2024-02-19 05:56] LABS: HEMATOCRIT. 30.5 % (36.0-48.0); HEMOGLOBIN. 8.9 g/dL (12.0-16.0); MEAN CORPUSCULAR HEMOGLOBIN 22.1 pg (28.0-32.0); MEAN CORPUSCULAR HGB CONC 29.2 g/dL (31.0-37.0); MEAN CORPUSCULAR VOLUME 75.6 fL (81.0-99.0); MEAN PLATELET VOLUME 7.7 fl (7.4-10.4); PLATELET 282 x1000/uL (130-400); RED BLOOD CELL COUNT 4.04 mill/uL (4.2-5.4); RED CELL DISTRIBUTION WIDTH 22.9 % (11.6-14.6); WHITE BLOOD COUNT 12.3 x1000/uL (4.5-11.0)
[2024-02-19 05:59] LABS: CREATININE 1.4 mg/dL (0.6-1.0); GLUCOSE 141 mg/dL (70-105); UREA NITROGEN BLOOD 47 mg/dL (9-23)
[2024-02-19 06:10] LABS: DIFFERENTIAL COMMENT 1
[2024-02-19] MEDS: FUROSEMIDE 100MG/10ML VIAL IVP NR (09:26)
[2024-02-19] MEDS ORDERED: METHYLPREDNISOLONE SOD SUCC 40MG/ML (ACT-O-VIAL) IV SCH (21:00)
[2024-02-20 00:57] LABS: ANISOCYTOSIS 1+; HYPOCHROMASIA 1+; MICROCYTOSIS 1+; NUCLEATED RED BLOOD CELLS 1 /100 WBC; PLATELET ESTIMATE NORMAL
== END 2024-02-19 18:33 | DRG 264 ==
LOC: ER 12:48 → EDBEDREQ 14:19 → 5WST 15:31 → EDBEDREQ 15:37 → EDBEDREQTM 15:37 → 7WST 22:00 → CVICU 02-16 12:56
PROVIDERS: ADMIT Internal Medicine; ATTEND Internal Medicine
PROC: 0WJC0ZZ Inspection of Mediastinum, Open Approach (ICD-10-PCS; principal; 2024-02-16)
PROC: 30233N1 Transfusion of Nonautologous Red Blood Cells into Peripheral Vein, Percutaneous Approach (ICD-10-PCS; 2024-02-16)
PROC: 5A09357 Assistance with Respiratory Ventilation, Less than 24 Consecutive Hours, Continuous Positive Airway Pressure (ICD-10-PCS; 2024-02-16)
PROC: 0BNP0ZZ Release Left Pleura, Open Approach (ICD-10-PCS; 2024-02-16)
PROC: 0BNN0ZZ Release Right Pleura, Open Approach (ICD-10-PCS; 2024-02-16)
DX: I08.0 Rheumatic disorders of both mitral and aortic valves (principal); I50.33 Acute on chronic diastolic (congestive) heart failure; J96.01 Acute respiratory failure with hypoxia; D68.32 Hemorrhagic disorder due to extrinsic circulating anticoagulants; I69.354 Hemiplegia and hemiparesis following cerebral infarction affecting left non-dominant side; K92.2 Gastrointestinal hemorrhage, unspecified; I71.21 Aneurysm of the ascending aorta, without rupture; I11.0 Hypertensive heart disease with heart failure; I25.10 Atherosclerotic heart disease of native coronary artery without angina pectoris; F32.A Depression, unspecified; F41.9 Anxiety disorder, unspecified; J44.9 Chronic obstructive pulmonary disease, unspecified; T45.515A Adverse effect of anticoagulants, initial encounter; D63.8 Anemia in other chronic diseases classified elsewhere; I48.0 Paroxysmal atrial fibrillation; Z95.0 Presence of cardiac pacemaker; Z79.01 Long term (current) use of anticoagulants; Z87.891 Personal history of nicotine dependence; Z95.3 Presence of xenogenic heart valve; Y92.89 Other specified places as the place of occurrence of the external cause
CPT/HCPCS: 36415; 36600; 71045; 71275; 80048; 80053; 82375; 82805; 82962; 83735; 83880; 84100; 84132; 84484; 85014; 85018; 85025; 85049; 85347; 85379; 85384; 86705; 86850; 86870; 86900; 86920; 87340; 93005; 93970; 94640; 94660; 97112; 97116; 97162; 97167; 97530; 97535; 99291; C1725; C1729; C1751; C1758; J0360; J0690; J0885; J1200; J1265; J1644; J1650; J1815; J1885; J1940; J2250; J2405; J2704; J2710; J2919; J2920; J3010; J3370; J3475; J3480; J3490; J7050; J7060; P9016; P9047; Q9967; C1713

== ENCOUNTER 2024-03-03 18:06 | Inpatient (IN) | payer MEDICARE, MEDICAID ==
[2024-03-03] VITALS (22 sets, daily range): BP systolic 97–173; BP diastolic 54–79; PULSE 62–116; RESP 18–24; TEMP 36.9474–37.0296; O2SAT 100
[~2024-03-03] VITALS: Ht 160 cm; Wt 84.0 kg
[~2024-03-03 18:06] MED LIST changes: +FURO40TA5 PO
[2024-03-03] MEDS ORDERED: PHENYLEPHRINE 100 MG in DEXT 5% WATER 240 ML IV PRN (18:15)
[2024-03-03] MEDS ORDERED: ACETAMINOPHEN 325MG TABLET PO PRN (18:45)
[2024-03-03] MEDS ORDERED: ONDANSETRON HCL 4MG/2ML INJ IV PRN (18:45)
[2024-03-03] MEDS ORDERED: IPRATROPIUM/ALBUTEROL 0.5-3(2.5)MG/3ML NEB HHN PRN (18:45)
[2024-03-03] MEDS ORDERED: MAGNESIUM/ALUMINUM HYDROXIDE/SIMETHICONE 30ML UDC PO PRN (18:45)
[2024-03-03] MEDS ORDERED: DOCUSATE SODIUM 100MG CAPSULE PO PRN (18:45)
[2024-03-03] MEDS ORDERED: CLONIDINE 0.1MG TABLET PO PRN (18:45)
[2024-03-03] MEDS: PROPOFOL 10MG/ML 100ML 100 ML IV PRN (19:00)
[2024-03-03 20:00] LABS: CHLORIDE 106 mEq/L (98-107); POTASSIUM 3.4 mEq/L (3.5-5.1); SODIUM 136 mEq/L (136-145)
[2024-03-03 20:01] LABS: CALCIUM 8.7 mg/dL (8.7-10.4); CARBON DIOXIDE 23 mEq/L (21-32)
[2024-03-03 20:02] LABS: HEMATOCRIT. 35.3 % (36.0-48.0); HEMOGLOBIN. 9.6 g/dL (12.0-16.0); MEAN CORPUSCULAR HEMOGLOBIN 22.2 pg (28.0-32.0); MEAN CORPUSCULAR HGB CONC 27.1 g/dL (31.0-37.0); MEAN CORPUSCULAR VOLUME 81.8 fL (81.0-99.0); MEAN PLATELET VOLUME 7.2 fl (7.4-10.4); PLATELET 338 x1000/uL (130-400); RED BLOOD CELL COUNT 4.31 mill/uL (4.2-5.4); RED CELL DISTRIBUTION WIDTH 25.5 % (11.6-14.6); WHITE BLOOD COUNT 24.9 x1000/uL (4.5-11.0)
[2024-03-03 20:06] LABS: CREATININE 1.2 mg/dL (0.6-1.0); GLUCOSE 133 mg/dL (70-105); UREA NITROGEN BLOOD 22 mg/dL (9-23)
[2024-03-03 20:09] LABS: DIFFERENTIAL COMMENT 1
[2024-03-03 20:40] LABS: BG BASE EXCESS -0.3 mmol/L (-2.0-2.0); BG CARBOXYHEMOGLOBIN 0.4 % (0.5-1.5); BG DEOXYHEMOGLOBIN 0.3 % (0.0-5.0); BG FRACTION INSPIRED OXYGEN 100; BG HCO3 ACT 25.4 mmol/L (22.0-26.0); BG METHEMOGLOBIN 0.3 % (0.0-1.5); BG OXYGEN SATURATION 99.7 % (92.0-98.5); BG PCO2 45.8 mmHg (35.0-45.0); BG PH 7.361 (7.350-7.450); BG PO2 332.4 mmHg (75.0-100.0); BG SAMPLE SITE UAL; BG TOTAL HEMOGLOBIN 10.5 g/dL (12.0-18.0); BG VENT MODE VENT - AC
[2024-03-03] MEDS: PANTOPRAZOLE SODIUM 40 MG/VIAL IV SCH (20:44)
[2024-03-03] MEDS: SODIUM CHLORIDE 0.9% 1,000 ML IV SCH (20:44)
[2024-03-03] MEDS: APIXABAN 2.5 MG TABLET PO SCH (20:59)
[2024-03-03] MEDS: ATORVASTATIN CALCIUM 10MG TABLET PO SCH (20:59)
[2024-03-03] MEDS: METHYLPREDNISOLONE SOD SUCC 125MG/2ML (ACT-O-VIAL) IV SCH (22:13)
[2024-03-03 22:17] LABS: CLARITY URINE CLEAR (CLEAR); COLOR URINE YELLOW (YELLOW); GLUCOSE URINE NEGATIVE (NEGATIVE); KETONES URINE NEGATIVE (NEGATIVE); LEUKOCYTE ESTERASE URINE NEGATIVE (NEGATIVE); NITRITE URINE NEGATIVE (NEGATIVE); OCCULT BLOOD URINE NEGATIVE (NEGATIVE); PROTEIN URINE 1+ (NEGATIVE); SPECIFIC GRAVITY URINE 1.019 (1.005-1.030)
[2024-03-03 22:38] LABS: BACTERIA URINE NONE SEEN; HYALINE CASTS URINE 0-5 /lpf; RBC URINE NONE SEEN /hpf (0-2); SQUAMOUS EPITHELIAL CELL URINE FEW /lpf (RARE/1+); WBC URINE 0-2 /hpf (0-2)
[2024-03-03 22:48] LABS: ANISOCYTOSIS 3+; OVALOCYTES FEW; PLATELET ESTIMATE NORMAL
[2024-03-03 23:41] LABS: TROPONIN I HIGH SENSITIVITY 115 ng/L (3.0-34)
[2024-03-04] VITALS (59 sets, daily range): BP systolic 87–149; BP diastolic 55–93; PULSE 98–114; RESP 18–27; TEMP 36.44736–36.78072; O2SAT 99–100
[2024-03-04 05:46] LABS: CARBON DIOXIDE 26 mEq/L (21-32); CHLORIDE 105 mEq/L (98-107); POTASSIUM 4.3 mEq/L (3.5-5.1); SODIUM 139 mEq/L (136-145)
[2024-03-04 05:47] LABS: HEMATOCRIT. 28.1 % (36.0-48.0); HEMOGLOBIN. 8.1 g/dL (12.0-16.0); MEAN CORPUSCULAR HEMOGLOBIN 22.6 pg (28.0-32.0); MEAN CORPUSCULAR HGB CONC 28.7 g/dL (31.0-37.0); MEAN CORPUSCULAR VOLUME 78.5 fL (81.0-99.0); MEAN PLATELET VOLUME 7.6 fl (7.4-10.4); PLATELET 263 x1000/uL (130-400); RED BLOOD CELL COUNT 3.57 mill/uL (4.2-5.4); RED CELL DISTRIBUTION WIDTH 24.8 % (11.6-14.6); WHITE BLOOD COUNT 21.1 x1000/uL (4.5-11.0)
[2024-03-04 05:48] LABS: CALCIUM 8.6 mg/dL (8.7-10.4)
[2024-03-04 05:52] LABS: GLUCOSE 123 mg/dL (70-105)
[2024-03-04 05:53] LABS: TRIGLYCERIDE 111 mg/dL (0-150); UREA NITROGEN BLOOD 29 mg/dL (9-23)
[2024-03-04 05:54] LABS: T4 FREE 1.43 ng/dL (0.89-1.76)
[2024-03-04 05:55] LABS: THYROID STIMULATING HORMONE 0.85 uIU/mL (0.55-4.78)
[2024-03-04 06:02] LABS: TROPONIN I HIGH SENSITIVITY 148 ng/L (3.0-34)
[2024-03-04 06:58] LABS: DIFFERENTIAL COMMENT 1
[2024-03-04] MEDS ORDERED: NALOXONE HCL 0.4MG/ML VIAL IV PRN (08:15)
[2024-03-04] MEDS ORDERED: ACETAMINOPHEN 325MG TABLET PO PRN (08:15)
[2024-03-04] MEDS: ALLOPURINOL 100 MG TABLET PO SCH (08:29)
[2024-03-04] MEDS: HYDROCODONE/ACETAMINOPHEN 10/325MG TABLET PO PRN (08:30)
[2024-03-04 08:34] LABS: BG BASE EXCESS 0.7 mmol/L (-2.0-2.0); BG CARBOXYHEMOGLOBIN 0.4 % (0.5-1.5); BG DEOXYHEMOGLOBIN 0.5 % (0.0-5.0); BG FRACTION INSPIRED OXYGEN 40; BG HCO3 ACT 23.1 mmol/L (22.0-26.0); BG METHEMOGLOBIN 0.2 % (0.0-1.5); BG OXYGEN SATURATION 99.5 % (92.0-98.5); BG OXYHEMOGLOBIN 98.9 % (94.0-97.0); BG PCO2 28.7 mmHg (35.0-45.0); BG PH 7.523 (7.350-7.450); BG PO2 166.7 mmHg (75.0-100.0); BG SAMPLE SITE RIGHT RADIAL; BG TOTAL HEMOGLOBIN 8.8 g/dL (12.0-18.0); BG VENT MODE VENT - AC
[2024-03-04] MEDS ORDERED: FUROSEMIDE 20MG/2ML VIAL IVP SCH (09:00)
[2024-03-04] MEDS: FAMOTIDINE 20MG/2ML VIAL IV SCH (10:43)
[2024-03-04] MEDS: DIPHENHYDRAMINE 50MG/ML VIAL IV SCH (10:44)
[2024-03-04 17:14] LABS: ANISOCYTOSIS 4+; HYPOCHROMASIA 1+; MICROCYTOSIS 1+; PLATELET ESTIMATE NORMAL
[2024-03-04] MEDS ORDERED: PROPOFOL 10MG/ML 100ML 100 ML IV PRN (21:30)
[2024-03-05] VITALS (47 sets, daily range): BP systolic 116–163; BP diastolic 63–117; PULSE 96–114; RESP 12–28; TEMP 36.3918; O2SAT 94–100
[2024-03-05] MEDS: PROPOFOL 10MG/ML 100ML 100 ML IV PRN (02:21)
[2024-03-05 05:38] LABS: MEAN CORPUSCULAR HEMOGLOBIN 23.5 pg (28.0-32.0); MEAN CORPUSCULAR HGB CONC 31.2 g/dL (31.0-37.0); MEAN CORPUSCULAR VOLUME 75.5 fL (81.0-99.0); MEAN PLATELET VOLUME 7.7 fl (7.4-10.4); PLATELET 243 x1000/uL (130-400); RED BLOOD CELL COUNT 2.91 mill/uL (4.2-5.4); RED CELL DISTRIBUTION WIDTH 25.1 % (11.6-14.6); WHITE BLOOD COUNT 5.2 x1000/uL (4.5-11.0)
[2024-03-05 05:47] LABS: CALCIUM 8.7 mg/dL (8.7-10.4)
[2024-03-05 05:52] LABS: CREATININE 1.3 mg/dL (0.6-1.0)
[2024-03-05 06:20] LABS: DIFFERENTIAL COMMENT 1; HEMOGLOBIN. 6.8 g/dL (12.0-16.0)
[2024-03-05 09:01] LABS: PROTHROMBIN TIME 11.4 sec (9.6-11.0)
[2024-03-05 10:19] LABS: BG BASE EXCESS -3.7 mmol/L (-2.0-2.0); BG CARBOXYHEMOGLOBIN 0.6 % (0.5-1.5); BG DEOXYHEMOGLOBIN 0.5 % (0.0-5.0); BG FRACTION INSPIRED OXYGEN 40; BG HCO3 ACT 20.2 mmol/L (22.0-26.0); BG METHEMOGLOBIN 0.1 % (0.0-1.5); BG OXYGEN SATURATION 99.5 % (92.0-98.5); BG OXYHEMOGLOBIN 98.8 % (94.0-97.0); BG PCO2 31.5 mmHg (35.0-45.0); BG PH 7.424 (7.350-7.450); BG PO2 139.1 mmHg (75.0-100.0); BG SAMPLE SITE RIGHT RADIAL; BG TOTAL HEMOGLOBIN 8.5 g/dL (12.0-18.0); BG VENT MODE VENT - CPAP
[2024-03-05 10:25] LABS: HEMATOCRIT 27.5 % (36.0-48.0); MEAN CORPUSCULAR HEMOGLOBIN 23.5 pg (28.0-32.0); MEAN CORPUSCULAR HGB CONC 29.1 g/dL (31.0-37.0); MEAN CORPUSCULAR VOLUME 80.5 fL (81.0-99.0); PLATELET 266 x1000/uL (130-400); RED BLOOD CELL COUNT 3.42 mill/uL (4.2-5.4); WHITE BLOOD COUNT 6.3 x1000/uL (4.5-11.0)
[2024-03-05 11:37] LABS: ANISOCYTOSIS 2+; MICROCYTOSIS 2+; PLATELET ESTIMATE NORMAL
[2024-03-05 11:39] LABS: HYPOCHROMASIA 1+
[2024-03-05 12:13] LABS: IRON 15 ug/dL (50-170)
[2024-03-05 12:16] LABS: TOTAL IRON BINDING CAPACITY 295 ug/dl (250-425)
[2024-03-05 13:42] LABS: TROPONIN I HIGH SENSITIVITY 193 ng/L (3.0-34)
[2024-03-05] MEDS: THROAT LOZENGES-BENZOCAINE/MENTH/CETYLPYRD CL LOZENGES MM PRN (15:46)
[2024-03-05] MEDS ORDERED: HYDROXYZINE 10MG TABLET PO PRN (16:00)
[2024-03-05] MEDS ORDERED: ERGO1250 PO (19:23)
[2024-03-05] MEDS ORDERED: BENZ1LOZ73 PO (19:23)
[2024-03-05] MEDS ORDERED: SULF1TAB44 PO (19:23)
[2024-03-05] MEDS ORDERED: HYDR-3782 PO (19:23)
[2024-03-05] MEDS ORDERED: MED4 PO (19:23)
[2024-03-05] MEDS ORDERED: ALLO100T PO (19:23)
[2024-03-05] MEDS ORDERED: APIX2.5T PO (19:23)
[2024-03-05] MEDS ORDERED: SULFAMETHOXAZOLE/TRIMETHOPRIM 800/160MG TABLET PO SCH (20:00)
[2024-03-06] MEDS ORDERED: FUROSEMIDE 20MG TABLET PO SCH (09:00)
[2024-03-06] MEDS ORDERED: LOSARTAN 25 MG TABLET PO SCH (09:00)
[2024-03-07] MEDS ORDERED: FERROUS SULFATE 325MG TABLET PO SCH (09:00)
== END 2024-03-05 21:32 | disposition home or self-care (01) | DRG 915 ==
LOC: MICUSO 18:06
PROVIDERS: ADMIT Internal Medicine; ATTEND Internal Medicine
PROC: 5A1945Z Respiratory Ventilation, 24-96 Consecutive Hours (ICD-10-PCS; principal; 2024-03-03)
PROC: 0BH17EZ Insertion of Endotracheal Airway into Trachea, Via Natural or Artificial Opening (ICD-10-PCS; 2024-03-03)
DX: T78.2XXA Anaphylactic shock, unspecified, initial encounter (principal); I50.33 Acute on chronic diastolic (congestive) heart failure; J96.01 Acute respiratory failure with hypoxia; J84.9 Interstitial pulmonary disease, unspecified; Z99.11 Dependence on respirator [ventilator] status; I11.0 Hypertensive heart disease with heart failure; T36.1X5A Adverse effect of cephalosporins and other beta-lactam antibiotics, initial encounter; D64.9 Anemia, unspecified; I35.1 Nonrheumatic aortic (valve) insufficiency; I48.0 Paroxysmal atrial fibrillation; F32.A Depression, unspecified; T88.8XXA Other specified complications of surgical and medical care, not elsewhere classified, initial encounter; D50.9 Iron deficiency anemia, unspecified; Y65.8 Other specified misadventures during surgical and medical care; Y82.8 Other medical devices associated with adverse incidents; Y92.89 Other specified places as the place of occurrence of the external cause; Z95.3 Presence of xenogenic heart valve; Z88.1 Allergy status to other antibiotic agents; Z87.891 Personal history of nicotine dependence; Z79.01 Long term (current) use of anticoagulants; Z79.899 Other long term (current) drug therapy; Z95.0 Presence of cardiac pacemaker
CPT/HCPCS: 36415; 36600; 71045; 80048; 81003; 82375; 82805; 82962; 83540; 83550; 83735; 84100; 84439; 84443; 84478; 84484; 85025; 85027; 86850; 86870; 86900; 86920; 93005; 94003; 97162; J1200; J2470; J2704; J2919; J3490; J7030

== ENCOUNTER 2024-05-17 11:39 | Emergency (ER) | payer MEDICARE, MEDICAID ==
[~2024-05-17] VITALS: Ht 165.1 cm; Wt 76.0 kg
[~2024-05-17 11:39] MED LIST changes: +ALLO100T PO; -AMI2 PO; +APIX2.5T PO; +BENZ1LOZ73 PO; -BUME1TAB8 MT; +ERGO1250 PO; +HYDR-3782 PO; +METH4TAB95 PO; -METO25TA6 PO; +SULF1TAB44 PO; -WARF-67 PO
[2024-05-17 11:41] VITALS: PULSE 0; RESP 0
[2024-05-17] MEDS ORDERED: LABETALOL 5MG/ML 4ML INJ IV ONE ×2 (11:54→11:57)
[2024-05-17] MEDS ORDERED: TENECTEPLASE 50MG/VIAL IV NR (12:00)
== END 2024-05-17 16:00 ==
LOC: ER 11:39
DX: Z88.1 Allergy status to other antibiotic agents (principal); Z79.899 Other long term (current) drug therapy; I11.0 Hypertensive heart disease with heart failure; I50.9 Heart failure, unspecified; I48.91 Unspecified atrial fibrillation; F41.9 Anxiety disorder, unspecified; I46.9 Cardiac arrest, cause unspecified
CPT/HCPCS: 92950 ×2; 31500 ×2; 99291; J3490; J3101